=== PATIENT | male | born 1955 | race Caucasian/White ===

== ENCOUNTER → 2023-11-25 | Outpatient (CLI) | payer MEDICARE, BC ==
--- NOTE | 2023-12-14 16:19 | MR ---
Patient: Robert Long C Ordering Physician: Unknown, Unknown ID: [id number] Phone, Pager: Phone: N/A Pager: N/A : 1955 Age/Gender: 68Y, M Primary Location: N/A Procedure: MR lumbar wo con [facility] Date: 11/25/2023 8:46:12 AM EXAMINATION TYPE: MR lumbar spine wo con DATE OF EXAM: 11/25/2023 COMPARISON: No comparison available on downtime PACS. HISTORY: Low back pain x1 year CONTRAST: 0 mL intravenous Gadavist. TECHNIQUE: Multiplanar, multisequence images of the lumbar spine were acquired. FINDINGS: Cord terminates at the L1 level. L5-S1: No focal disc herniation or significant disc bulge. No spinal canal stenosis or neural foramin al stenosis. Facet hypertrophy is present. L4-L5: No significant disc bulge or disc herniation. Disc desiccation is present. No spinal canal alejandrina nosis. Facet hypertrophy and ligamentum flavum laxity is present. No AP spinal canal stenosis is pres ent. Mild right foraminal narrowing is present. L3-L4: No significant disc bulge or disc herniation. Disc desiccation is present. No spinal canal alejandrina nosis. No foraminal stenosis. L2-L3: No significant disc bulge or disc herniation. Disc desiccation is present. No spinal canal alejandrina nosis. No foraminal stenosis. L1-L2: No significant disc bulge or disc herniation. No spinal canal stenosis. No foraminal stenosi s. L1: There is mild signal change within the superior endplate of L1 slightly increased on T2-weighted sequences with heterogenous appearance on T1-weighted sequences. Differential diagnosis could include Modic type I degenerative change or superior endplate compression. This is nonspecific and malignanc y cannot be excluded. T12-L1: No significant disc bulge or disc herniation. No spinal canal stenosis. No foraminal stenos is. IMPRESSION: 1. Heterogenous signal within the superior endplate of L1 hyperintense on T2 sequences. Mild endplate compression deformity is favored. Other etiologies are not excluded, differential diagnosis discusse d above. Recommend contrast MRI for additional evaluation.
== END | disposition home or self-care (01) ==
LOC: RADMRIMAIN 09:15
PROVIDERS: ATTEND Family Medicine
DX: M51.9 Unspecified thoracic, thoracolumbar and lumbosacral intervertebral disc disorder (principal)
CPT/HCPCS: 72148

== ENCOUNTER → 2023-12-31 | Outpatient (CLI) | payer MEDICARE, BC ==
--- NOTE | 2023-12-31 21:31 | MR ---
EXAMINATION TYPE: MR lumbar spine wo/w con DATE OF EXAM: 12/31/2023 9:15 PM CLINICAL INDICATION: Male, 68 years old with history of M51.9 LSPINE LUMBAR DIS [id number] DEGEN D ISC DIS LS; PHH, abnormal prior mri. low back pain, mid back pain COMPARISON: 8 11/25/2023 TECHNIQUE: Multi planar, multi sequence imaging was performed utilizing: T1-weighted, T2-weighted, a nd turbo inversion recovery imaging of the lumbar spine. IV Contrast: 8 cc Gadavist. (None if empty) FINDINGS: Alignment: The lumbar vertebral bodies have preserved heights and alignment. Cord: The conus medullaris and the distal spinal cord appear unremarkable with regards to their signa l intensity and morphology. Bones/Discs: Abnormal bone marrow edema on the anterior aspect of the L1 vertebral body which is not significantly changed from 11/25/2023. There is a Schmorl's node and near the spinal bone marrow signa l. Mild enhancement around the Schmorl's node present. Mild degeneration changes throughout the spine with osteophyte formation and facet joint arthropathy. Multilevel disc desiccation is present. No ab normal inversion recovery signal to suggest bony edema. High T1/high T2 signal probable L2 vertebral body hemangioma. T12-L1: No evidence of significant spinal canal stenosis or neural foraminal stenosis. L1-L2: No evidence of significant spinal canal stenosis or neural foraminal stenosis. L2-L3: No evidence of significant spinal canal stenosis or neural foraminal stenosis. L3-L4: Disc bulge and facet joint arthropathy result in mild spinal canal and mild bilateral neural f oraminal stenosis. L4-L5: Disc bulge and facet joint arthropathy result in mild spinal canal and moderate to severe bila teral neural foraminal stenosis. L5-S1: Disc bulge and facet joint arthropathy result in mild spinal canal and mild bilateral neural f oraminal stenosis. Trace right facet joint effusion. No significant spinal canal or neural foraminal stenosis in the remainder of the visualized levels. Other findings: None. IMPRESSION: 1. Superior endplate of L1 bony edema surrounding a Schmorl's node correlate for pain secondary to S chmorl's node. There is surrounding enhancement within this region. Findings not significantly change d from prior 11/25/2023 2. No definitive evidence of disc herniation or significant spinal canal stenosis. 3. Multilevel disc degeneration with associated osteoarthritic changes with moderate to severe bilat eral L4-L5 neural foraminal stenosis. [facility], , 12/31/2023 9:29 PM
== END | disposition home or self-care (01) ==
LOC: RADMRIMAIN 20:45
PROVIDERS: ATTEND Family Medicine
DX: M51.36 Other intervertebral disc degeneration, lumbar region (principal); M99.73 Connective tissue and disc stenosis of intervertebral foramina of lumbar region; R60.9 Edema, unspecified
CPT/HCPCS: 72158